=== PATIENT | female | born 1970 | race Caucasian/White ===

== ENCOUNTER 2017-12-30 11:08 | Emergency (ER) | payer OTHER | END 2017-12-30 11:14 | disposition left against medical advice (07) | LOC: ED 11:08 | DX: Z53.21 Procedure and treatment not carried out due to patient leaving prior to being seen by health care provider (principal) | CPT/HCPCS: 99281 ==

== ENCOUNTER 2021-04-04 06:03 | Day surgery (SDC) | payer OTHER ==
[2021-04-04] MEDS ORDERED: Lactated Ringers 1,000 ML IV SCH (06:30)
[2021-04-04] MEDS ORDERED: Versed 2 MG/2 ML Injection ONE (07:30)
[2021-04-04] MEDS ORDERED: DIPRIVAN 200 MG/20 ML IV ONE ×2 (07:30→07:40)
[2021-04-04 08:30] VITALS: BP 128/89; PULSE 95; O2SAT 95
--- NOTE | 2021-04-04 13:10 | OP ---
SURGERY DATE/TIME: 04/04/2021 0732 PREOPERATIVE DIAGNOSIS: Screening exam. POSTOPERATIVE DIAGNOSES: Normal colon. PROCEDURES: Colonoscopy. SURGEON: Dr. Martinez. ANESTHESIA: MAC. Medications given by anesthesia department. HISTORY: The patient is a 50-year-old white female presenting now for her first screening colonoscopy. She was appraised of the risks of the procedure including the risk of perforation, phlebitis, untoward reaction to medication, bleeding and missed lesions. The patient verbalized her understanding and desired to have the procedure performed. DESCRIPTION OF PROCEDURE: The patient was given the medications by the anesthesia department. She had continuous pulse oximetry, ECG monitoring, intermittent blood pressure monitoring during the examination. She was placed in the left lateral decubitus position. A digital rectal examination was performed and revealed normal anal sphincter tone and no masses. The flexible Olympus pediatric colonoscope was used to intubate the rectum. A view of the colon was developed sequentially to the cecum. Upon insertion and withdrawal, including a retroflex view in the rectum, no mucosal lesions were encountered. The scope was removed from the patient who tolerated the procedure well and was sent back to OP recovery in good condition. The prep was noted to be fair to good.
== END 2021-04-04 08:45 | disposition home or self-care (01) ==
LOC: SDC 06:03
PROVIDERS: ATTEND Family Medicine
DX: Z12.11 Encounter for screening for malignant neoplasm of colon (principal)
CPT/HCPCS: J2250; J2704

== ENCOUNTER 2023-10-14 07:42 | Emergency (ER) | payer OTHER ==
--- NOTE | 2023-10-14 07:48 | ERPHSYRPT ---
- History of Present Illness Time Seen by Provider: 10/14/23 07:48 Source: patient Exam Limitations: no limitations Physician History: This is a 52-year-old white female patient who presents with 3-day history of fever, myalgias and arthralgias. She denies sore throat. She denies chest pain. She denies shortness of breath. She denies cough. She denies abdominal pain. She denies nausea, vomiting but has had diarrhea. 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 Patient has taken home COVID test and they have been negative. Her fever today is measured at 98.5 F. Her room air oxygen saturation level is 100%. She is tachycardic at approximately 120 bpm on the monitor. 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 Associated Symptoms: muscle aches (As well as diarrhea) Allergies/Adverse Reactions: sulfamethoxazole [From Bactrim] Allergy (Severe, Verified 10/14/23 07:50) Vomiting trimethoprim [From Bactrim] Allergy (Severe, Verified 10/14/23 07:50) Vomiting Penicillins Allergy (Unknown, Verified 10/14/23 07:50) Rash Home Medications: Diclofenac Sodium 75 mg PO DAILY 04/01/21 [History] Omeprazole 40 mg PO DAILY 04/01/21 [History] Spironolactone [Aldactone] 100 mg PO DAILY 04/01/21 [History] Progesterone, Micronized [Progesterone] 200 mg PO DAILY 04/04/21 [History] Travel Risk - Emerging Infectious Disease Are you exhibiting symptoms associated with any current EIDs: Yes Symptoms: Diarrhea, Fever, Headaches/Body Aches/ - Review of Systems Constitutional: Fever Eyes: No Symptoms Ears, Nose, & Throat: No Symptoms Respiratory: No Symptoms Cardiac: No Symptoms Abdominal/Gastrointestinal: Diarrhea, No Abdominal Pain, No Nausea, No Vomiting, No Constipation Genitourinary Symptoms: No Symptoms Musculoskeletal: Arthralgias, Myalgias Skin: No Symptoms Neurological: No Symptoms Psychological: No Symptoms Endocrine: No Symptoms Hematologic/Lymphatic: No Symptoms Immunological/Allergic: No Symptoms All Other Systems: Reviewed and Negative - Past Medical History Pertinent Past Medical History: No Neurological History: No Pertinent History ENT History: No Pertinent History Cardiac History: No Pertinent History Respiratory History: No Pertinent History Endocrine Medical History: No Pertinent History Musculoskeletal History: Arthritis GI Medical History: No Pertinent History History: No Pertinent History Psycho-Social History: Anxiety Female Reproductive Disorders: Endometriosis Other Medical History: R ANNALISA, L TKA, LBP W/ R LE RADICULOPATHY W/ INJECTION. COMPLETE HYSTERECTOMY W/ OOPHORECTOMY 20 YEARS AGO - Past Surgical History Past Surgical History: Yes Neuro Surgical History: No Pertinent History Cardiac: No Pertinent History Respiratory: No Pertinent History Gastrointestinal: Appendectomy Genitourinary: No Pertinent History Musculoskeletal: Joint Replacement Female Surgical History: Hysterectomy Other Surgical History: R total hip and L total knee. left knee replacement - Social History Smoking Status: Former smoker Exposure to second hand smoke: No Drug Use: none - Nursing Vital Signs Nursing Vital Signs: Initial Vital Signs Temperature 98.5 F 10/14/23 07:51 Pulse Rate 116 H 10/14/23 07:51 Respiratory Rate 20 10/14/23 07:51 Blood Pressure 160/99 10/14/23 07:51 O2 Sat by Pulse Oximetry 99 10/14/23 07:51 Pain Scale Pain Intensity 0 - Physical Exam General Appearance: no apparent distress, alert Eye Exam: PERRL/EOMI, eyes nml inspection ENT Exam: normal ENT inspection, no apparent trauma, hearing grossly normal Neck Exam: normal inspection, non-tender, supple, full range of motion Respiratory Exam: normal breath sounds, lungs clear, no respiratory distress, No chest non-tender Cardiovascular/Chest Exam: tachycardia Gastrointestinal/Abdominal Exam: soft, non tender, no distention, no mass, no guarding, no ecchymosis Pelvic Exam: not done Rectal Exam: not done Extremity Exam: non-tender, normal range of motion, normal inspection Neurologic Exam: alert, oriented x 3, cooperative, 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, normal mood/affect, nml cerebellar function, nml station & gait, sensation nml Skin Exam: normal color, warm, dry Lymphatic: No adenopathy SpO2 Interpretation: normal O2 Delivery: Room Air - Course Nursing assessment & vital signs reviewed: Yes Ordered Tests: Active Orders 24 hr Category Date Time Status IV Insertion STAT Care 10/14/23 07:53 Active Pulse Oximetry (ED) STAT Care 10/14/23 07:53 Active CHEST 1 VIEW (PORTABLE) Stat Exams 10/14/23 07:53 Taken BLOOD CULTURE Stat Lab 10/14/23 08:19 Received CBC W DIFF Stat Lab 10/14/23 08:00 Completed CMP Stat Lab 10/14/23 08:00 Completed Lactic Acid Stat Lab 10/14/23 07:53 Completed MAGNESIUM Stat Lab 10/14/23 08:00 Completed MONO SCREEN Stat Lab 10/14/23 08:00 Completed UA W/RFX UR CULTURE Stat Lab 10/14/23 07:58 Received Medication Summary Generic Name Dose Route Start Last Admin Trade Name Lay PRN Reason Stop Dose Admin Lactated Ringer's 500 mls @ 500 mls/hr 10/14/23 09:30 10/14/23 09:28 Lactated Ringers IV 11/13/23 09:29 500 mls/hr .Q1H ENE Administration Discontinued Medications Generic Name Dose Route Start Last Admin Trade Name Lay PRN Reason Stop Dose Admin Sodium Chloride 1,000 mls @ 999 mls/hr 10/14/23 07:53 10/14/23 09:17 Sodium Chloride 0.9% 1000 Ml IV 10/14/23 08:53 Infused .Q1H1M STA Infusion Sodium Chloride Confirm 10/14/23 07:56 Sodium Chloride 0.9% 1000 Ml Administered 10/14/23 07:57 Dose 1,000 mls @ ud .ROUTE .STK-MED ONE Sodium Chloride Confirm 10/14/23 09:23 Sodium Chloride 0.9% 500 Ml Administered 10/14/23 09:24 Dose 500 mls @ ud IV .STK-MED ONE Lactated Ringer's Confirm 10/14/23 09:24 Lactated Ringers Administered 10/14/23 09:25 Dose 1,000 mls @ ud IV .STK-MED ONE Loperamide HCl 4 mg 10/14/23 10:22 10/14/23 10:29 Loperamide Hcl 2 Mg Capsule PO 10/14/23 10:23 4 mg STAT ONE Administration Potassium Chloride 20 meq 10/14/23 09:17 10/14/23 09:23 Potassium Chloride Tab 10 Meq Tab PO 10/14/23 09:18 20 meq STAT ONE Administration Potassium Chloride Confirm 10/14/23 09:22 Potassium Chloride Tab 10 Meq Tab Administered 10/14/23 09:23 Dose 20 meq .ROUTE .STK-MED ONE Lab/Rad Data: Laboratory Result Diagrams 10/14/23 08:00 10/14/23 08:00 Laboratory Results 10/14/23 10/14/23 10/14/23 Range/Units 08:36 08:05 08:05 WBC (3.98-10.04) x10^3/uL RBC (3.93-5.22) x10^6/uL Hgb (11.2-15.7) g/dL Hct (34.1-44.9) % MCV (79.4-94.8) fL MCH (25.6-32.2) pg MCHC (32.2-35.5) g/dL RDW (11.7-14.4) % Plt Count (182-369) x10^3/uL MPV (9.4-12.3) fL Gran % (34.0-71.1) % Immature Gran % (Auto) (0.001-0.429) % Nucleat RBC Rel Count (0.00-0.2) % Eos # (Auto) (0.04-0.36) x10^3/uL Immature Gran # (Auto) (0.001-0.031) x10^3u/L Absolute Lymphs (auto) (1.18-3.74) x10^3/uL Absolute Monos (auto) (0.24-0.86) x10^3/uL Absolute Nucleated RBC (0.00-0.012) x10^3u/L Lymphocytes % (19.3-51.7) % Monocytes % (4.7-12.5) % Eosinophils % (0.7-5.8) % Basophils % (0.1-1.2) % Absolute Granulocytes (1.56-6.13) x10^3/uL Basophils # (0.01-0.08) x10^3/uL Sodium (135-145) mmol/L Potassium (3.5-5.1) mmol/L Chloride (98-107) mmol/L Carbon Dioxide (22-30) mmol/L Anion Gap (5-15) MEQ/L BUN (7-17) mg/dL Creatinine (0.52-1.04) mg/dL Estimated GFR ML/MIN Glucose (74-106) mg/dL Lactic Acid (0.4-2.0) Calcium (8.4-10.2) mg/dL Magnesium (1.6-2.3) mg/dL Total Bilirubin (0.2-1.3) mg/dL AST (14-36) U/L ALT (0-35) U/L Alkaline Phosphatase (38-126) U/L Serum Total Protein (6.3-8.2) g/dL Albumin (3.5-5.0) g/dL C. difficile Screen NEGATIVE (NEGATIVE) C.difficile 027-NAP1-B1 PRESUMPTIVE NEGATIVE (NEGATIVE) Monoscreen (NEGATIVE) Influenza Type A Ag NEGATIVE (NEGATIVE) Influenza Type B Ag NEGATIVE (NEGATIVE) RSV (PCR) NEGATIVE (NEGATIVE) SARS-CoV-2 (PCR) NEGATIVE (NEGATIVE) Group A Strep Antibody NOT DETECTED (NEGATIVE) 10/14/23 10/14/23 10/14/23 Range/Units 08:00 08:00 08:00 WBC 8.3 (3.98-10.04) x10^3/uL RBC 4.82 (3.93-5.22) x10^6/uL Hgb 14.4 (11.2-15.7) g/dL Hct 43.3 (34.1-44.9) % MCV 89.8 (79.4-94.8) fL MCH 29.9 (25.6-32.2) pg MCHC 33.3 (32.2-35.5) g/dL RDW 12.0 (11.7-14.4) % Plt Count 221 (182-369) x10^3/uL MPV 10.6 (9.4-12.3) fL Gran % 84.0 H (34.0-71.1) % Immature Gran % (Auto) 0.2 (0.001-0.429) % Nucleat RBC Rel Count 0.0 (0.00-0.2) % Eos # (Auto) 0 L (0.04-0.36) x10^3/uL Immature Gran # (Auto) 0.02 (0.001-0.031) x10^3u/L Absolute Lymphs (auto) 0.83 L (1.18-3.74) x10^3/uL Absolute Monos (auto) 0.47 (0.24-0.86) x10^3/uL Absolute Nucleated RBC 0.00 (0.00-0.012) x10^3u/L Lymphocytes % 10.0 L (19.3-51.7) % Monocytes % 5.6 (4.7-12.5) % Eosinophils % 0.0 L (0.7-5.8) % Basophils % 0.2 (0.1-1.2) % Absolute Granulocytes 6.99 H (1.56-6.13) x10^3/uL Basophils # 0.02 (0.01-0.08) x10^3/uL Sodium 138 (135-145) mmol/L Potassium 3.1 L (3.5-5.1) mmol/L Chloride 100 (98-107) mmol/L Carbon Dioxide 23 (22-30) mmol/L Anion Gap 17.9 H (5-15) MEQ/L BUN 8 (7-17) mg/dL Creatinine 0.80 (0.52-1.04) mg/dL Estimated GFR 88.6 ML/MIN Glucose 117 H (74-106) mg/dL Lactic Acid (0.4-2.0) Calcium 9.6 (8.4-10.2) mg/dL Magnesium 1.8 (1.6-2.3) mg/dL Total Bilirubin 0.50 (0.2-1.3) mg/dL AST 21 (14-36) U/L ALT 17 (0-35) U/L Alkaline Phosphatase 54 (38-126) U/L Serum Total Protein 8.1 (6.3-8.2) g/dL Albumin 4.6 (3.5-5.0) g/dL C. difficile Screen (NEGATIVE) C.difficile 027-NAP1-B1 (NEGATIVE) Monoscreen NEGATIVE (NEGATIVE) Influenza Type A Ag (NEGATIVE) Influenza Type B Ag (NEGATIVE) RSV (PCR) (NEGATIVE) SARS-CoV-2 (PCR) (NEGATIVE) Group A Strep Antibody (NEGATIVE) 10/14/23 Range/Units 07:53 WBC (3.98-10.04) x10^3/uL RBC (3.93-5.22) x10^6/uL Hgb (11.2-15.7) g/dL Hct (34.1-44.9) % MCV (79.4-94.8) fL MCH (25.6-32.2) pg MCHC (32.2-35.5) g/dL RDW (11.7-14.4) % Plt Count (182-369) x10^3/uL MPV (9.4-12.3) fL Gran % (34.0-71.1) % Immature Gran % (Auto) (0.001-0.429) % Nucleat RBC Rel Count (0.00-0.2) % Eos # (Auto) (0.04-0.36) x10^3/uL Immature Gran # (Auto) (0.001-0.031) x10^3u/L Absolute Lymphs (auto) (1.18-3.74) x10^3/uL Absolute Monos (auto) (0.24-0.86) x10^3/uL Absolute Nucleated RBC (0.00-0.012) x10^3u/L Lymphocytes % (19.3-51.7) % Monocytes % (4.7-12.5) % Eosinophils % (0.7-5.8) % Basophils % (0.1-1.2) % Absolute Granulocytes (1.56-6.13) x10^3/uL Basophils # (0.01-0.08) x10^3/uL Sodium (135-145) mmol/L Potassium (3.5-5.1) mmol/L Chloride (98-107) mmol/L Carbon Dioxide (22-30) mmol/L Anion Gap (5-15) MEQ/L BUN (7-17) mg/dL Creatinine (0.52-1.04) mg/dL Estimated GFR ML/MIN Glucose (74-106) mg/dL Lactic Acid 1.4 (0.4-2.0) Calcium (8.4-10.2) mg/dL Magnesium (1.6-2.3) mg/dL Total Bilirubin (0.2-1.3) mg/dL AST (14-36) U/L ALT (0-35) U/L Alkaline Phosphatase (38-126) U/L Serum Total Protein (6.3-8.2) g/dL Albumin (3.5-5.0) g/dL C. difficile Screen (NEGATIVE) C.difficile 027-NAP1-B1 (NEGATIVE) Monoscreen (NEGATIVE) Influenza Type A Ag (NEGATIVE) Influenza Type B Ag (NEGATIVE) RSV (PCR) (NEGATIVE) SARS-CoV-2 (PCR) (NEGATIVE) Group A Strep Antibody (NEGATIVE) - Progress Progress: improved, re-examined Progress Note: 10/14/23 08:00 My medical decision making and the assignment of moderate complexity to this patient's medical issue today is based on review of the patient's past medical history, review the patient's medication list, review of patient drug allergy list, history present illness and physical findings on examination. The workup in this patient includes placement of intravenous line, infusion of normal saline solution, CBC, CMP, lactic acid level, amylase and lipase level, urinalysis, viral studies, monotest, group A strep test, and chest x-ray. We will also do stool studies if the patient is able to provide us with a stool specimen. Differential diagnosis includes but is not limited to viral illness, C. difficile toxin, urinary tract infection, pneumonia 10/14/23 09:56 I interpreted the patient's laboratory data results. The urinalysis is pending. Thus far, the patient does have a mild hypokalemia and patient is receiving potassium 20 mill equivalents orally. Her viral swabs and strep test as well as monotest are negative. Based on the laboratory data results thus far, the patient does not have an acute or emergent medical issue. The preliminary chest x-ray report was interpreted by me. There is no evidence of any acute cardiopulmonary process. Counseled pt/family regarding: lab results, diagnosis, need for follow-up, rad results Medical Desision Making - Diagnostic Testing Diagnostic test were ordered, analyzed, and reviewed by me: Yes Radiological Interpretation: Interpreted by me - Risk of complications Minimal Risk: Minimal risk of morbidity - Departure Departure Disposition: Home Clinical Impression: Fever, Diarrhea, Hypokalemia Condition: Stable Critical Care Time: No Referrals: MARIVEL BLEDSOE NP [Primary Care Provider] - Follow up/PCP as directed Additional Instructions: Drink plenty of clear liquids before advancing your diet. Use Tylenol and ibuprofen for aches, pains and fever control. Continue your medications as prescribed. Follow-up with your primary care provider on 10/15/2023, to make arrangements for follow-up appointment and to be seen in the next 3 to 5 days. May use [id number] Imodium per package instructions. I did prescribe Flagyl for you. If the diarrhea persist despite you drinking adequate amount of clear liquids, fill the prescription of Flagyl I wrote for you. Prescriptions: Metronidazole 500 mg [Flagyl 500 MG] 500 mg PO TID #21 tablet
[2023-10-14] MEDS ORDERED: Sodium Chloride 0.9% 1000 ML 1,000 ML ONE (07:56)
[2023-10-14 07:58] VITALS: TEMP 98.5
[2023-10-14] MEDS: Sodium Chloride 0.9% 1000 ML 1,000 ML IV STA (08:03)
[2023-10-14 08:23] LABS: Absolute Neutrophil Ct (ANC) 6.99 x10^3/uL (1.56-6.13); BASOPHIL % 0.2 % (0.1-1.2); Basophil (Absolute #) 0.02 x10^3/uL (0.01-0.08); Eosinophil (Absolute #) 0 x10^3/uL (0.04-0.36); Hematocrit 43.3 % (34.1-44.9); Hemoglobin 14.4 g/dL (11.2-15.7); IMMATURE GRAN # 0.02 x10^3u/L (0.001-0.031); IMMATURE GRAN % 0.2 % (0.001-0.429); Lymphocyte (Absolute #) 0.83 x10^3/uL (1.18-3.74); Mean Cell Volume 89.8 fL (79.4-94.8); Mean Corpuscular Hemoglobin 29.9 pg (25.6-32.2); Mean Corpuscular Hgb Concent. 33.3 g/dL (32.2-35.5); Mean Platelet Volume 10.6 fL (9.4-12.3); Monocyte (Absolute #) 0.47 x10^3/uL (0.24-0.86); Monocytes % 5.6 % (4.7-12.5); Platelet Count 221 x10^3/uL (182-369); Red Blood Count 4.82 x10^6/uL (3.93-5.22); White Blood Count 8.3 x10^3/uL (3.98-10.04)
[2023-10-14 09:02] LABS: INFLUENZA A NEGATIVE (NEGATIVE); INFLUENZA B NEGATIVE (NEGATIVE); RESPIRATORY SYNCTIAL VIRUS NEGATIVE (NEGATIVE); SARS-CoV-2 Xpert Express NEGATIVE (NEGATIVE)
[2023-10-14 09:07] LABS: ALBUMIN 4.6 g/dL (3.5-5.0); ANION GAP 17.9 MEQ/L (5-15); BILIRUBIN,TOTAL 0.5 mg/dL (0.2-1.3); Calcium 9.6 mg/dL (8.4-10.2); Creatinine 1 0.8 mg/dL (0.52-1.04); EST GLOMERULAR FILTRATION RATE 88.6 ML/MIN; MAGNESIUM 1.8 mg/dL (1.6-2.3); Potassium 3.1 mmol/L (3.5-5.1); Total Protein 8.1 g/dL (6.3-8.2)
[2023-10-14] MEDS ORDERED: Klor Con ONE (09:22)
[2023-10-14] MEDS ORDERED: Sodium Chloride 0.9% 500 ML 0 ML IV ONE (09:23)
[2023-10-14] MEDS: Klor Con PO ONE (09:23)
[2023-10-14] MEDS ORDERED: Lactated Ringers 1,000 ML IV ONE (09:24)
[2023-10-14 09:26] LABS: 027 TOX PROD PRESUMPTIVE NEGATIVE (NEGATIVE); TOXIGENIC C. DIFF ORG NEGATIVE (NEGATIVE)
[2023-10-14] MEDS: Lactated Ringers 500 ML IV SCH (09:28)
[2023-10-14] MEDS: IMODIUM 2 MG PO ONE (10:29)
[2023-10-14 10:36] VITALS: BP 126/73; PULSE 94; RESP 23; O2SAT 96
[2023-10-14 10:47] LABS: Appearance Sl Cloudy* (Clear); Specific Gravity 1.015 (1.005-1.030)
[2023-10-14 10:48] LABS: Bilirubin Negative (Negative); Blood Negative (Negative); Glucose, Urine Negative (Negative); Ketones 80 (Negative); Leukocyte Esterase Negative (Negative); Nitrite Negative (Negative); Protein,Urine Dip Trace (Negative); Urobilinogen 0.2 mg/dL (0.2)
[2023-10-14 10:49] LABS: ADD URINE CULTURE? NO (NO); Bacteria Rare /HPF (None Seen); Epithelial Cells Moderate /HPF (None Seen); RBC NONE SEEN /HPF (0-5)
--- NOTE | 2023-10-14 20:33 | XRAY ---
Indication: Fever. Comparison: January 03, 2016 Portable chest again demonstrates normal heart and lungs. Bony thorax intact. No new/acute findings.
[2023-10-16 13:08] LABS: Adenovirus F40/41 Not Detected (Not Detected); Astrovirus Not Detected (Not Detected); Campylobacter Not Detected (Not Detected); Cryptosporidium Not Detected (Not Detected); Cyclospora cayetanensis Not Detected (Not Detected); Entamoeba histolytica Not Detected (Not Detected); Enteroaggregative E coli Not Detected (Not Detected); Enterpathogenic E coli Not Detected (Not Detected); Entertoxigenic E coli Not Detected (Not Detected); Giardia lamblia Not Detected (Not Detected); Norovirus GI/GII Not Detected (Not Detected); Plesiomonas shigelloides Not Detected (Not Detected); Rotavirus A Not Detected (Not Detected); Shig-toxin-producing E coli Not Detected (Not Detected); Shigella/Enterinvasive E coli Not Detected (Not Detected); Vibrio Not Detected (Not Detected); Vibrio cholerae Not Detected (Not Detected); Yersinia enterocolitica Not Detected (Not Detected)
[2023-10-16 13:56] LABS: Sapovirus Not Detected (Not Detected)
[2023-10-16 14:07] LABS: Salmonella Detected (Not Detected)
== END 2023-10-14 11:04 | disposition home or self-care (01) ==
LOC: ED 07:42
DX: R50.9 Fever, unspecified (principal); R19.7 Diarrhea, unspecified; E87.6 Hypokalemia; E86.0 Dehydration; M79.10 Myalgia, unspecified site; Z79.899 Other long term (current) drug therapy
CPT/HCPCS: 0241U; 36000; 36415; 71045; 80053; 81001; 83605; 83735; 85025; 86308; 87040; 87493; 87507; 87651; 94760; 96360; 99284; A9270-GY